=== PATIENT | male | born 1970 | race Caucasian/White ===

== ENCOUNTER 2023-01-18 10:58 | Emergency (ER) | payer OTHER, SELFPAY ==
[2023-01-18 11:04] VITALS: BP 112/64; PULSE 79; RESP 18; TEMP 36.9; O2SAT 96; BMI 26.4
--- NOTE | 2023-01-18 11:34 | ED.GENADUL1 ---
HPI - General Adult General Chief complaint: Abdominal Pain Stated complaint: ABDOMINAL PAIN Time Seen by Provider: 01/18/23 11:34 Source: patient Mode of arrival: walk-in Limitations: no limitations History of Present Illness HPI narrative: patient presents with onset of nausea and diarrhea last night. He started developing back aching throughout the evening. He's had no numerous episodes of diarrhea but has not seen blood. He's not been on any antibiotics. No other family members are ill. He had a sandwich at noon yesterday from a diner. He's not had any travel history. He has not seen any blood in his urine. The backache is in both sides. He also has muscle aches and pains throughout his body. He is not had his gastrointestinal problems. No other family members are ill. Related Data Allergies Allergy/AdvReac Type Severity Reaction Status Date / Time Penicillins AdvReac Mild RASH Verified 01/18/23 11:04 Exam Narrative Exam Narrative: GENERAL: Well hydrated, appears well, No obvious distress, Awake, Alert, Oriented x 3, Cognition intact HEENT: Normocephalic, No evidence of trauma, injury or infection, airway intact. Conjuntiva normal, no pallor or scleral icterus NECK: Supple, no meningeal irritation, full ROM, non-tender, No JVD CHEST: Symmetrical, no injury, non-tender, RESP: LCTA, no wheeze, rales, rhonchi,no subcutaneous emphysema, no labored respirations CARDIO: Normal rate and rhythm, No murmur, Rub, or ectopy during auscultation. ABD: Non-tender, normal BS, no guarding, rebound or rigidity. No pulsatile, masses. No organomegaly. No peritoneal findings. Flank shows no tenderness percussion with negative Jeff's sign. NEURO: Neuro at baseline, No motor deficits, CN 2-12 Normal, Mentation inctact. EXTREMITIES: No edema, good tissue perfusion, no venous cords, non-tender SKIN: No petechiae, purpura, or abnormal bruising, warm, dry, no rash Constitutional Vital Signs, click to edit/add: Last Vital Signs Temp 98.4 F 01/18/23 11:04 Pulse 79 01/18/23 11:04 Resp 18 01/18/23 11:04 BP 112/64 01/18/23 11:04 Pulse Ox 96 01/18/23 11:04 O2 Del Method Room Air 01/18/23 11:04 Course Vital Signs Vital signs: Vital Signs Temperature 98.4 F 01/18/23 11:04 Pulse Rate 79 01/18/23 11:04 Respiratory Rate 18 01/18/23 11:04 Blood Pressure 112/64 01/18/23 11:04 Pulse Oximetry 96 01/18/23 11:04 Oxygen Delivery Method Room Air 01/18/23 11:04 Temperature 98.4 F 01/18/23 11:04 Pulse Rate 79 01/18/23 11:04 Respiratory Rate 18 01/18/23 11:04 Blood Pressure 112/64 01/18/23 11:04 Pulse Oximetry 96 01/18/23 11:04 Oxygen Delivery Method Room Air 01/18/23 11:04 Medical Decision Making MDM Narrative Medical decision making narrative: patient underwent CT scan to rule out pyelonephritis diverticulitis or pancreatitis. However since diarrhea was his main clinical symptom I felt this is probably an enteric viral pathogen. The CT scan showed no acute findings. He did receive 2 L of fluid as well as analgesic and Zofran. He does feel better. Discharge Plan Discharge Chief Complaint: Abdominal Pain Clinical Impression: Gastroenteritis Patient Disposition: Home, Self-Care Time of Disposition Decision: 14:08 Instructions: Gastroenteritis (ED) Additional Instructions: frequent small sips of clear fluids such as Jell-O/Gatorade for 24-48 hours. No solid food for the minimum of twenty-four hours. Do not use diarrhea medication. Return for fever or any blood in the stool Stand Alone Forms: Portal Instructions Referrals: ISREAL MARES [Primary Care Provider] - 1 week
[2023-01-18] MEDS: 0.9 % SODIUM CHLORIDE 1,000 ML 999 ML IV (11:46)
[2023-01-18] MEDS: KETOROLAC TROMETHAMINE 30 MG/ML VIAL IVP (11:46)
[2023-01-18] MEDS: ONDANSETRON 4 MG RAPDIS TABLET SL (11:46)
[2023-01-18 11:57] LABS: Hematocrit 40.4 % (42.0-54.0); Hemoglobin 13.8 g/dL (14.0-18.0); Mean Corpuscular HGB Conc 34.2 g/dL (29.9-35.2); Mean Corpuscular Hemoglobin 30.6 pg (25.9-34.0); Mean Corpuscular Volume 89.6 fL (80.0-94.0); Mean Platelet Volume 9.8 fL (9.5-13.5); Platelet Count 197 10^3/uL (150-450); Red Blood Count 4.51 10^6/uL (4.70-6.10); White Blood Count 3.4 10^3/uL (4.0-11.0)
--- NOTE | 2023-01-18 11:59 | CT_ITS ---
[address] [address] Patient Name: BETHANY PINA MRN: [id number] date: 1970 Sex: M Assigned Patient Location: ER Current Patient Location: ER Accession/Order Number: [id number] Exam Date: 01/18/2023 11:55 Report Date: 01/18/2023 12:24 At the request of: PHI BRISENO Procedure: CT abdomen pelvis wo con EXAMINATION: CT abdomen pelvis wo con, 01/18/2023 11:55 AM EDT HISTORY: STONES COMPARISON: 02/16/2011 TECHNIQUE: CT scan of the abdomen and pelvis was performed without IV contrast. Oral contrast was not administered prior to the examination. Sagittal and coronal reformats were created and saved to PACS. Dose reduction techniques were achieved by using automated exposure control and/or adjustment of mA and/or kV according to patient size and/or use of iterative reconstruction technique. FINDINGS: Noncontrasted nature of the exam limits evaluation of the vascular structures and solid organs. Lung Bases: No acute findings within the visualized lower chest. Liver: 2.0 cm fluid attenuating cyst in the right liver. Liver is normal size and contour. Biliary tree: Normal. Gallbladder: Normal. Spleen: Normal. Pancreas: Normal. Adrenal glands: Normal. Kidneys and ureters: Normal. Specifically negative for hydronephrosis, or radiodense calculi. Bladder: Grossly unremarkable for the degree of underdistention. Reproductive organs: Prostate is not significantly enlarged. Seminal vesicles are symmetric. Gastrointestinal tract: There is mild thickening of the distal esophageal wall possibly relating to reflux. No abnormal bowel dilatation. The appendix is surgically absent. Peritoneum/retroperitoneum: No free fluid or gas. Minimal nonspecific hazy attenuation central mesentery. Vasculature: No abdominal aortic aneurysm. Lymph nodes: There are few prominent central mesenteric lymph nodes which are not significantly changed since previous CT 02/16/2011. No new or increasing abdominal pelvic adenopathy. Abdominal wall: Fat-containing left inguinal hernia. Musculoskeletal: Degenerative change of the spine. CT/CT abdomen pelvis wo con IMPRESSION: 1. No acute findings within the abdomen or pelvis within limitations of noncontrast technique. Specifically, no hydronephrosis, or radiodense urinary calculi. 2. Mild thickening of the distal esophageal wall possibly relating to reflux. Correlate with patient's symptomatology. Electronically authenticated by: ARY DOBSON Date: 01/18/2023 12:24
[2023-01-18 12:01] LABS: Anion Gap 13.2; BUN Creatinine Ratio 33.3; Calcium 7.9 mg/dL (8.5-10.1); Carbon Dioxide 26.3 mmol/L (21.0-32.0); Chloride 102 mmol/L (98-107); Estimated GFR (African America >60 (>=60); Estimated GFR (Non-African Ame >60 (>=60); Glucose 110 mg/dL (74-106); Potassium 3.5 mmol/L (3.5-5.1); Sodium 138 mmol/L (136-145)
[2023-01-18 12:18] LABS: Lymphocytes Absolute Manual 0.23 10^3/uL (1.20-3.80); Monocytes Absolute Manual 0.06 10^3/uL (0.30-0.80); Segmented Neut Absolute Manual 3.06 10^3/uL (1.4-6.5)
[2023-01-18] MEDS: 0.9 % SODIUM CHLORIDE 1,000 ML 1000 ML IV (13:03)
[2023-01-18 13:19] LABS: Bilirubin Urine SMALL (NEGATIVE); Blood Urine NEGATIVE (NEGATIVE); Clarity Urine CLEAR (CLEAR); Color Urine DK. YELLOW (YELLOW); Glucose Urine UA NEGATIVE (NEGATIVE); Ketones Urine NEGATIVE (NEGATIVE); Leukocyte Esterase Urine NEGATIVE (NEGATIVE); Nitrite Urine NEGATIVE (NEGATIVE); Protein Urine TRACE mg/dL (NEG/TRACE); Specific Gravity Urine >=1.030 (1.005-1.025); Urine Microscopic Indicated NO; Urobilinogen Urine 0.2 EU/dL (0.2-1.0); pH Urine 5.5 (5.0-9.0)
== END 2023-01-18 14:20 | disposition home or self-care (01) ==
PROVIDERS: Emergency Provider Emergency Medicine Emergency Medical Services; PCP Family Medicine
DX: K52.9 Noninfective gastroenteritis and colitis, unspecified (principal)
CPT/HCPCS: 36415; 74176; 80048; 81003; 83690; 85007; 85025; 96361; 96374; 99284